=== PATIENT | male | born 1945 | race Caucasian/White ===

== ENCOUNTER 2017-07-01 08:34 | Emergency (ER) | payer OTHER, MEDICARE ==
[~2017-07-01] VITALS: Ht 180.3 cm; Wt 81.6 kg
--- NOTE | 2017-07-01 10:10 | ED NECK/BACK PAIN COMPLAINT ---
History of Present Illness General Chief Complaint: Low Back Pain/Injury Stated Complaint: LOW BACK PAIN Source: patient, family, old records Exam Limitations: no limitations Vital Signs & Intake/Output Vital Signs & Intake/Output Vital Signs Date Time Temp Pulse Resp B/P B/P Pulse O2 O2 Flow FiO2 Mean Ox Delivery Rate 07/01 0846 97.5 86 18 176/92 99 Room Air Allergies Coded Allergies: NO KNOWN ALLERGIES (11/25/11) Reconcile Medications Atorvastatin Calcium (Lipitor) 10 MG TABLET 20 MG PO DAILY HIGH CHOLESTROL ( Reported) Metformin Hydochloride (Glucophage) 500 MG TABLET 500 MG PO DAILY DIABETES ( Reported) Triage Note: PT WAS MOVING FURNITURE 2 DAYS AND YESTERDAY HE STARTED HAVING LOW BACK PAIN. NO RELIEF WITH TYLENOL OR BENGAY. PT MISSED HIS MORNING B/P MEDICATION Triage Nurses Notes Reviewed? yes Onset: yest Duration: day(s):, constant, continues in ED, getting worse, waxing and waning Quality/Severity: severe, sharpness Location: bilateral lower back Radiation: none Method of Injury: activity HPI: Patient presents for evaluation of severe bilateral low back pain began gradually after unusual activity consisting of moving his personal belongings. He states although he didn't lift anything heavy he did have a number of items to move. The pain began shortly after activity while he was sitting. He states it is worse with movement and certain positions. He tried Tylenol without relief. He denies any urinary fecal incontinence or urinary retention. He denies saddle paresthesias. He did have a back injury years ago after falling. Additional past medical history consists of hypertension diabetes hypercholesterolemia and prostate problems. Past History Medical History Any Pertinent Medical History? see below for history Surgical History Surgical History: non-contributory Psychosocial History What is your primary language Urdu Family History Hx Contributory? No Review of Systems Review of Systems Constitutional: Reports: no symptoms. Eyes: Reports: no symptoms. Ears, Nose, Throat, Mouth: Reports: no symptoms. Respiratory: Reports: no symptoms. Cardiovascular: Reports: no symptoms. Gastrointestinal/Abdominal: Reports: no symptoms. Musculoskeletal: Reports: see HPI. Skin: Reports: no symptoms. Neurological/Psychological: Reports: no symptoms. All Other Systems: Reviewed and Negative Physical Exam Physical Exam Neck: see below Comments: Gen.: Well-nourished, well-developed, no acute respiratory distress. Mild to moderate distress while at rest secondary to back pain. Pain worsens with movement. Head: Normocephalic, atraumatic. Eyes: Normal inspection bilaterally Ears: Normal inspection bilaterally Nose: Normal inspection Throat/mouth : Moist mucosa Neck: Supple, full range of motion, no goiter Lungs: Quiet respirations Back: Decreased range of motion secondary to pain. Tenderness over the left paraspinal musculature without associated soft tissue swelling ecchymoses or erythema. Extremities: Normal range of motion grossly, lower extremities: No straight leg raise sign, sensation intact bilaterally (no saddle paresthesias), deep tendon reflexes normal bilaterally, sensation to light touch intact bilaterally. Neurologic: Cranial nerves grossly intact, speech is clear Skin: warm and dry Psychiatric: Calm, cooperative, no apparent delusions or hallucinations Core Measures CVA/TIA Diagnosis: No Progress Differential Diagnosis: carotid dissection, cauda equina syn, herniated disc, sciatica Plan of Care: Orders Procedure Date/time Status XRY-LUMBOSACRAL SPINE AP & LAT 07/01 1010 Active Current Medications Sig/Bret Start time Last Medication Dose Stop Time Status Admin Cyclobenzaprine HCl 10 MG ONCE ONE 07/01 1015 UNVr (Flexeril 10MG Tab) 07/01 1016 Hydrocodone Bitart/ 1 TAB ONCE ONE 07/01 1015 UNVr Acetaminophen 07/01 1016 (Vicodin) Diagnostic Imaging: Discussed w/RAD: Radiology Read. Radiology Impression: PATIENT: TASHI MATHEW PRESENT AGE: 71 PATIENT ACCOUNT NO: [id number] : 44 LOCATION: [facility] ORDERING PHYSICIAN: Aayush Heayl MD SERVICE DATE: 07/01/17-101 EXAM TYPE : RAD - XRY-LUMBOSACRAL SPINE AP & LAT EXAMINATION: XR LUMBOSACRAL SPINE CLINICAL INFORMATION: Low back pain. No specific injury. COMPARISON: Chest x- rays of 07/16/2009 TECHNIQUE: 4 views of the lumbosacral spine were obtained. FINDINGS: The vertebral body heights are maintained. There is grade 1 anterolisthesis of L4 over L5. There might be pars interarticularis defects at L4. Intervertebral disc spaces are well preserved. Minimal marginal hypertrophic endplate spurring is noted. There is diffuse osteopenia. Facet arthropathy is noted from L4 to S1. Scattered vascular calcifications. Limited evaluation of the sacroiliac joints is unremarkable. IMPRESSION: Osteopenia. 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 Lumbar spondylosis , greater in the lower lumbar spine. No evidence of compression fracture. DICTATED BY: Norberto Vigil MD DATE/TIME DICTATED:07/01/171130 AEROBICS INSTRUCTOR: TOMASZ DATE/TIME TRANSCRIBED:07/01/171130 CONFIDENTIAL, DO NOT COPY WITHOUT APPROPRIATE AUTHORIZATION. <Electronically signed in Other Vendor System> SIGNED BY: Norberto Vigil MD 07/01/17 1153 Departure Departure Disposition: HOME OR SELF CARE Condition: Stable Clinical Impression Primary Impression: Low back strain Qualifiers: Encounter type: initial encounter Qualified Code: S39.012A - Strain of muscle, fascia and tendon of lower back, initial encounter Secondary Impressions: Spondylolisthesis Qualifiers: Spinal region: lumbar Qualified Code: M43.16 - Spondylolisthesis, lumbar region Spondylolysis Referrals: Unknown (PCP/Family) Additional Instructions: Rest, no exertion or heavy lifting. Ibuprofen 600 mg every 8 hours as needed for your back pain. Flexeril as prescribed for your back spasms. Follow-up with your primary care physician within the next 48-72 hours for reevaluation. Your back x-ray shows degenerative changes that might require evaluation by a neurosurgeon. Return if any concerns or sudden worsening. Please note that there might be incidental findings in your evaluation that are unrelated to the current emergency department visit. Please notify your primary care doctor about this emergency department visit in order to obtain and review all of the testing performed so that these incidental findings can be monitored as needed. If you had an x-ray performed, please understand that some fractures may not be seen on the initial set of x-rays. If your symptoms persist you might need a repeat set of x-rays to check for such a fracture. If you had a laceration evaluated, please understand that foreign bodies such as glass or wood may not be visible to the naked eye or on plain x-rays. If the wound becomes red, swollen, increasingly more painful or if there is any drainage from the wound, please have it reevaluated by a physician for the possibility of a retained foreign body. If you're unable to follow up as outlined in the discharge instructions please return to the emergency department. Thank you for choosing the [facility] Emergency Department for your care. It was a pleasure to serve you today. Aayush Healy M.D. [facility] Departure Forms: Customer Survey General Discharge Information
[2017-07-01] MEDS ORDERED: GLUCOPHAGE500 M1 PO (10:54)
[2017-07-01] MEDS ORDERED: LIPITOR10 M1 PO (10:56)
--- NOTE | 2017-07-01 11:53 | RADIOLOGY REPORT ---
EXAMINATION: XR LUMBOSACRAL SPINE CLINICAL INFORMATION: Low back pain. No specific injury. COMPARISON: Chest x-rays of 07/16/2009 TECHNIQUE: 4 views of the lumbosacral spine were obtained. FINDINGS: The vertebral body heights are maintained. There is grade 1 anterolisthesis of L4 over L5. There might be pars interarticularis defects at L4. Intervertebral disc spaces are well preserved. Minimal marginal hypertrophic endplate spurring is noted. There is diffuse osteopenia. Facet arthropathy is noted from L4 to S1. Scattered vascular calcifications. Limited evaluation of the sacroiliac joints is unremarkable. IMPRESSION: Osteopenia. 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 Lumbar spondylosis, greater in the lower lumbar spine. No evidence of compression fracture.
[2017-07-01 12:08] VITALS: BP 120/70
[2017-07-01] MEDS ORDERED: NORCO 5-325 TA1 EACH PO (12:08)
[2017-07-01] MEDS ORDERED: IBUPROFEN600 M1 PO (12:08)
[2017-07-01] MEDS ORDERED: CYCLOBENZAPRINE10 M1 PO (12:08)
== END 2017-07-01 12:15 ==
LOC: ERH 08:34
DX: S39.012A Strain of muscle, fascia and tendon of lower back, initial encounter (principal); M43.10 Spondylolisthesis, site unspecified; M43.00 Spondylolysis, site unspecified; X58.XXXA Exposure to other specified factors, initial encounter; Y92.9 Unspecified place or not applicable; Y93.9 Activity, unspecified
CPT/HCPCS: 72100